=== PATIENT | male | born 1985 | race Caucasian/White ===

== ENCOUNTER 2017-11-27 21:26 | Emergency (ER) | payer SELFPAY ==
[~2017-11-27] VITALS: Ht 193 cm; Wt 68.2 kg
[~2017-11-27 21:26] MED LIST: ATARAX25 MG PO; CLINDAMYCIN150 MG PO; NO HOME MEDICATIONS; NORCO 325 MG-7.1 TAB PO; PAIN PILL; PREDNISONE20 MG PO; STOMACH PILL; [UNRECOGNIZED DRUG - REMARK]
[2017-11-27 21:30] VITALS: BP 117/74; TEMP 97.9
[2017-11-27 22:00] VITALS: PULSE 74
== END 2017-11-27 22:08 | disposition home or self-care (01) ==
LOC: COL.ER 21:26
DX: F10.129 Alcohol abuse with intoxication, unspecified (principal); Z79.899 Other long term (current) drug therapy

== ENCOUNTER 2017-11-28 03:11 | Emergency (ER) | payer SELFPAY ==
[~2017-11-28] VITALS: Ht 193 cm; Wt 63.6 kg
[2017-11-28 03:23] VITALS: TEMP 97.7
[2017-11-28 03:35] VITALS: BP 112/83
[2017-11-28 05:52] VITALS: PULSE 82
== END 2017-11-28 05:52 | disposition home or self-care (01) ==
LOC: COL.ER 03:11
DX: F10.129 Alcohol abuse with intoxication, unspecified (principal)

== ENCOUNTER 2018-04-26 23:03 | Emergency (ER) | payer SELFPAY ==
[~2018-04-26] VITALS: Ht 193 cm; Wt 68.2 kg
[2018-04-26 23:10] VITALS: BP 135/93; TEMP 97.4
[2018-04-26 23:49] LABS: BASO % 0.3 % (0.0-2.0); EOS # 0.2 (0.0-0.7); EOS % 3.1 % (0-4.0); GRAN # 3.9 (1.4-6.5); GRAN % 55.4 % (42.2-75.2); HEMATOCRIT 41.6 % (42.0-52.0); HEMOGLOBIN 14.8 g/dl (13.5-18.0); LYMPH # 2.3 (1.2-3.4); LYMPH % 32.9 % (20.0-51.0); MEAN CELL VOLUME 94 fl (80.0-100.0); MEAN CORPUSCULAR HEMOGLOBIN 33 pg (27.0-31.0); MEAN CORPUSCULAR HGB CONC 36 g/dl (33.0-37.0); MEAN PLATELET VOLUME 9.2 fl (7.4-10.4); MONO # 0.6 (0.1-0.6); MONO % 7.9 % (1.7-9.3); PLATELET COUNT 202 K/mm3 (130-400); RED BLOOD COUNT 4.43 M/mm3 (4.20-5.60); REDCELL DISTRIBUTION WIDTH-CV 14.7 % (11.5-14.5)
[2018-04-26 23:52] LABS: TRICYCLIC ANTIDEPRESS URINE NEGATIVE
[2018-04-27 00:03] LABS: ACETAMINOPHEN 17 ug/mL (10-30); ALANINE AMINOTRANSFERASE 37 U/L (21-72); ALKALINE PHOSPHATASE 80 U/L (50-136); ANION GAP 9 mmol/L (7-16); AST,SGOT 47 U/L (15-37); BILIRUBIN,TOTAL 1.6 mg/dL (0.0-1.0); BLOOD UREA NITROGEN 11 mg/dL (9-20); CALCIUM 8.9 mg/dL (8.4-10.2); CARBON DIOXIDE 28 mmol/L (22-30); CHLORIDE 105 mmol/L (98-107); CREATININE, serum 0.75 mg/dL (0.66-1.25); GLUCOSE 99 mg/dL (74-106); POTASSIUM 3.3 mmol/L (3.4-5.0); SODIUM 142 mmol/L (137-145); TOTAL PROTEIN 7.2 gm/dL (6.4-8.2)
[2018-04-27 00:04] LABS: ALCOHOL(ethanol),MEDICAL < 10 mg/dL; SALICYLATE < 1.0 mg/dL
[2018-04-27 02:30] VITALS: PULSE 71
== END 2018-04-27 02:30 | disposition home or self-care (01) ==
LOC: COL.ER 23:03
PROVIDERS: Emergency Medicine
DX: F32.9 Major depressive disorder, single episode, unspecified (principal); F17.210 Nicotine dependence, cigarettes, uncomplicated

== ENCOUNTER 2021-09-02 20:04 | Emergency (ER) | payer SELFPAY ==
[~2021-09-02] VITALS: Ht 188 cm; Wt 70.5 kg
[2021-09-02 20:13] VITALS: TEMP 97.8
[2021-09-02 20:34] LABS: BASO % 0.3 % (0.0-2.0); EOS # 0.1 K/mm3 (0.0-0.7); EOS % 1.5 % (0.0-4.0); GRAN # 5.1 K/mm3 (1.4-6.5); GRAN % 74.9 % (42.2-75.2); HEMATOCRIT 44.2 % (42.0-52.0); HEMOGLOBIN 16.4 g/dl (13.5-18.0); LYMPH # 1.1 K/mm3 (1.2-3.4); LYMPH % 16.2 % (20.0-51.0); MEAN CELL VOLUME 91 fl (80.0-100.0); MEAN CORPUSCULAR HEMOGLOBIN 34 pg (27-31); MEAN CORPUSCULAR HGB CONC 37 g/dl (33.0-37.0); MEAN PLATELET VOLUME 9.9 fl (7.4-10.4); MONO # 0.5 K/mm3 (0.1-0.6); MONO % 6.8 % (1.7-9.3); PLATELET COUNT 190 K/mm3 (130-400); RED BLOOD COUNT 4.88 M/mm3 (4.20-5.60); REDCELL DISTRIBUTION WIDTH-CV 12.3 % (11.5-14.5)
[2021-09-02 21:01] LABS: ALBUMIN 4.4 gm/dL (3.5-5.0); BILIRUBIN,TOTAL 2.7 mg/dL (0.2-1.2); CALCIUM 9.4 mg/dL (8.4-10.2); CREATININE, serum 0.68 mg/dL (0.72-1.25); POTASSIUM 3.9 mmol/L (3.5-4.5); TOTAL PROTEIN 7.7 gm/dL (6.2-8.1)
[2021-09-02 22:01] LABS: COLLECTION METHOD CLEAN CATCH
[2021-09-02] MEDS ORDERED: ZOFRAN ODT4 MG PO (22:08)
[2021-09-02 22:10] LABS: MUCOUS Present (NOT PRESENT); PH 6 (5-8); SQUAMOUS EPITHELIAL None Seen /hpf (0-10); URINE APPEARANCE Clear (CLEAR/HAZY); URINE BACTERIA None Seen /hpf (NONE SEEN); URINE BILIRUBIN Negative (NEGATIVE); URINE BLOOD Negative (NEGATIVE); URINE COLOR Yellow (YELLOW); URINE GLUCOSE Negative (NEGATIVE); URINE KETONE 1+ (NEGATIVE); URINE LEUKOCYTE ESTERASE Negative (NEGATIVE); URINE NITRATE Negative (NEGATIVE); URINE PROTEIN(semi-quant) Negative (NEGATIVE); URINE RBC 0-2 /hpf (0-2); URINE UROBILINOGEN Negative (NEGATIVE)
[2021-09-02 22:37] VITALS: BP 118/77; PULSE 69
== END 2021-09-02 22:37 | disposition home or self-care (01) ==
LOC: COL.ER 20:04
PROVIDERS: Nurse Practitioner Primary Care
DX: R11.2 Nausea with vomiting, unspecified (principal)
CPT/HCPCS: J2405; J2550; J7030